=== PATIENT | male | born 1965 | race Caucasian/White ===

== ENCOUNTER → 2019-04-21 10:52 | Outpatient (BNVA) | payer OTHER, SELFPAY | PROVIDERS: Family Provider Nurse Practitioner Family; Visit Provider Nurse Practitioner Family | DX: J22 Unspecified acute lower respiratory infection (principal); R11.0 Nausea | CPT/HCPCS: 71046 ==

== ENCOUNTER → 2022-11-16 11:05 | Outpatient (BNVA) | payer OTHER, SELFPAY | PROVIDERS: Family Provider Nurse Practitioner Family; PCP Nurse Practitioner Family; Visit Provider Nurse Practitioner Family | DX: R53.83 Other fatigue (principal); N52.9 Male erectile dysfunction, unspecified | CPT/HCPCS: 80053; 80061; 84403; G0103 ==